=== PATIENT | female | born 1990 ===

== ENCOUNTER → 2017-11-22 | Outpatient (CLI) | payer OTHER ==
[~2017-11-22] MED LIST: ACET-1966 PO; PREN-127 PO; RANI-318 PO
[2017-11-22 10:26] LABS: PLATELET COUNT, AUTOMATED 188 K/uL (150-450)
== END ==
LOC: LAB 09:15
PROVIDERS: ATTEND Obstetrics & Gynecology
DX: Z34.91 Encounter for supervision of normal pregnancy, unspecified, first trimester (principal); R82.79 Other abnormal findings on microbiological examination of urine
CPT/HCPCS: 36415; 81001; 85025; 86592; 86762; 86787; 86850; 86900; 86901; 87088; 87340

== ENCOUNTER → 2018-03-03 | Outpatient (CLI) | payer OTHER ==
[~2018-03-03] MED LIST changes: +DOCU-442 PO; +FLU60VIA41 IM; +TRIA15OI20 TP
--- NOTE | 2018-03-03 13:45 | RADIOLOGY IMAGING REPORT ---
[place] [facility] [place] Deisy Peña : 1990 MR: [id number] V: [id number] EXAM DATE: ORDERING PHYSICIAN: JESSICA GONGORA TECHNOLOGIST: Location: [facility] Patient: Deisy Peña : 1990 Visit/Account:[id number] Date of Sevice: 03/03/2018 [facility] OB ANATOMICAL SURVEY HISTORY: Anatomical survey COMPARISON: None. TECHNIQUE: Transabdominal imaging was performed for assessment of the fetus and maternal pelvic s tructures. Transvaginal imaging was not performed. FINDINGS: Intrauterine gestations: One. presentation: Slightly oblique cephalic presentation. heart rate: 150 bpm. Amniotic fluid volume: Normal; ABBIE 14.33 cm; MVP 3.67 cm. Placenta: Posterior and fundal. Uterus: Gravid, otherwise grossly unremarkable where visualized. Maternal adnexa/ovaries: Grossly unremarkable, ovaries not visualized. Cervix: Grossly long and closed. Gestational Parameters: BPD: 4.96 cm, 73rd percentile HC: 18.13 cm, 47th percentile AC: 15.2 cm, 43rd percentile FL: 3.67 cm, 82nd percentile Average ultrasound age (AUA): 21 weeks/ zero days Estimated age based on LMP: 20 weeks/ three days Estimated weight (EFW): 389 grams +/- 57 grams, 74th percentile Anatomic Survey: Intracranial structures, 4-chamber heart, stomach, kidneys, urinary bladder, spine, 3-vessel cord and cord insertion are unremarkable. Two upper and two lower extremities visualized. The orbits w ere not clearly visualized. The patient has been rescheduled for follow-up ultrasound IMPRESSION: Single viable fetus in oblique cephalic presentation with an estimated gestational age of approximate ly 21 weeks and zero days. Estimated weight is 389 g, 74th percentile The orbits were not clearly visualized and the patient has been rescheduled for follow-up ultra sound Report Dictated By: Lauren Yip MD at 03/03/2018 1:36 PM Report E-Signed By: Lauren Yip MD at 03/03/2018 1:40 PM WSN:[email or web address]
== END ==
LOC: RAD 09:10
PROVIDERS: ATTEND Obstetrics & Gynecology
DX: Z34.02 Encounter for supervision of normal first pregnancy, second trimester (principal); Z3A.21 21 weeks gestation of pregnancy

== ENCOUNTER → 2018-03-07 | Outpatient (CLI) | payer OTHER | LOC: RAD 08:55 | PROVIDERS: ATTEND Obstetrics & Gynecology | DX: Z02.9 Encounter for administrative examinations, unspecified (principal) ==

== ENCOUNTER → 2018-04-28 | Outpatient (CLI) | payer OTHER ==
[~2018-04-28] MED LIST changes: +DIPH0.5D12 IM; +ONDA4TAB9 PO
[2018-04-28 13:00] LABS: PLATELET COUNT, AUTOMATED 166 K/uL (150-450)
== END ==
LOC: LAB 08:11
PROVIDERS: ATTEND Obstetrics & Gynecology
DX: Z34.02 Encounter for supervision of normal first pregnancy, second trimester (principal)
CPT/HCPCS: 36415; 82950; 85025

== ENCOUNTER → 2018-06-24 | Outpatient (CLI) | payer OTHER ==
[~2018-06-24] MED LIST changes: +CALC-515 PO
== END ==
LOC: LAB 09:18
PROVIDERS: ATTEND Advanced Practice Midwife
DX: Z34.93 Encounter for supervision of normal pregnancy, unspecified, third trimester (principal)
CPT/HCPCS: 87081

== ENCOUNTER 2018-07-14 22:24 | Observation (INO) | payer OTHER ==
[2018-07-14] MEDS ORDERED: LR(*) 1000 ML BAG 1,000 ML IV PRN (22:27)
[2018-07-14 23:00] VITALS: BP 115/70
== END 2018-07-15 01:43 | disposition home or self-care (01) ==
LOC: OB 22:24
PROVIDERS: ADMIT Student in an Organized Health Care Education/Training Program; ATTEND Student in an Organized Health Care Education/Training Program
DX: O47.1 False labor at or after 37 completed weeks of gestation (principal); Z3A.39 39 weeks gestation of pregnancy
CPT/HCPCS: 59025; G0378; G0379

== ENCOUNTER 2018-07-17 04:04 | Inpatient (IN) | payer OTHER ==
[~2018-07-17] VITALS: Ht 170.2 cm; Wt 107.5 kg
[2018-07-17] MEDS ORDERED: LR(*) 1000 ML BAG 1,000 ML IV PRN (04:05)
[2018-07-17 05:27] LABS: PLATELET COUNT, AUTOMATED 134 K/uL (150-450)
[2018-07-17 05:39] VITALS: BP 115/77; Ht 170.2 cm; Wt 107.5 kg
[2018-07-17] MEDS ORDERED: OXYTOCIN 30 UNIT/D5LR 500 ML 500 ML IV PRN ×2 (06:33→12:29)
[2018-07-17] MEDS ORDERED: ceFAZolin(*) 2GM/D5W 50ML 50 ML IVPB PRN (06:33)
[2018-07-17] MEDS ORDERED: FAMOTIDINE(*) 20MG/50ML PREMIX 50 ML IVPB PRN (06:33)
[2018-07-17] MEDS ORDERED: CALCIUM CARBONATE 500 MG CHEW PO PRN (06:35)
[2018-07-17] MEDS ORDERED: LIDOCAINE 1% LOCAL 300 MG/30ML INJ PRN (06:35)
[2018-07-17] MEDS ORDERED: FLUSH 10 ML SYR IVP PRN (06:35)
[2018-07-17] MEDS ORDERED: fentaNYL CITR 100 MCG/2 ML AMP IVP PRN (06:35)
[2018-07-17] MEDS ORDERED: ONDANSETRON 4 MG/2 ML VIAL IVP PRN (06:35)
[2018-07-17] MEDS ORDERED: LIDOCAINE/SOD BICARB 8.4% SYR SC PRN (06:35)
[2018-07-17] MEDS ORDERED: METOCLOPRAMIDE 10 MG/2 ML SDV IVP PRN (06:35)
[2018-07-17] MEDS ORDERED: ACETAMINOPHEN 500 MG TAB PO PRN (06:35)
--- NOTE | 2018-07-17 06:50 | History & Physical ---
History of Present Illness EDC per LMP: Jul 18, 2018 Estimated Gestational Age: 39.6 Chief Complaint Labor History of Present Illness 27-year-old at 39w6d presents with contractions. She has been having contractions for over 24hrs but they just increased in severity around midnight. She has had bloody show and mucus discharge for 4 days. She denies LOF. No preeclampsia symptoms. PNC by IMG. c/b GERD and history of depression (not on meds). History Patient's Blood Type: A Positive Rubella Status: Immune Group B Strep Screen: Negative Obstetrical History: Primip Past Medical History: PMH: Hx depression (not active and no meds currently) PSH: Jaw surgery and dental surgery Allergies: Coded Allergies: nickel (Verified Allergy, Intermediate, 02/03/17) adhesive tape (Verified Allergy, Unknown, 02/03/17) Social History: No T/E/D. Family History: FH: breast cancer MGM FH: esophageal cancer MGF FH: skin cancer FATHER FH: uterine cancer MOTHER Groin hernia FATHER Med Rec Home Meds Reported Medications Calcium Carbonate (TUMS) 200 Mg Tab.chew, 200 MG PO, TAB.CHEW 06/27/18 Vits W-Ca,Fe,Fa(<1MG) ( VITAMINS) 1 Each Tablet, 1 EACH PO DAILY, TAB 11/22/17 Acetaminophen (TYLENOL) 325 Mg Tablet, 1-2 TAB PO PRN PRN for PAIN, TAB 02/03/17 Review of Systems Constitutional: No Fever Neurological: No Syncope Eyes: No Vision Change Cardiovascular: No Chest Pain Respiratory: No Shortness of Breath, No Cough Gastrointestinal: No Nausea, No Vomiting, No Diarrhea Genitourinary: No Dysuria Musculoskeletal: No Pain Psychiatric: No Depression, No Anxiety Exam General Exam Vital Signs Vital Signs Date Time Temp Pulse Resp B/P (MAP) Pulse Ox O2 Delivery O2 Flow Rate FiO2 07/17/18 05:39 98.1 81 14 115/77 (90) 94 Room Air General Apperance: Alert/Awake/No Acute Distress Neuro: No Gross deficits Eyes: Normal Extraocular Movement & Vison Cardiovascular: Regular Rate and Rhythm Respiratory: No Respiratory Distress Abdomen: Gravid - Non-Tender : Normal Musculoskeletal: No Weakness/Pain Extremities: No Cyanosis,Clubbing or Edema Integumentary: Skin Intact without Lesions or Rash Psychological: Alert & Oriented X3, Appropriate Mood & Affect Cervical Dialation: 3 Cervical Effacement (%): 80 Cervical Consistency: Soft Cervical Position: Mid Station: -2 Presentation: Vertex Uterine Contractions(Q min): 5 Uterine Contraction Strength: Moderate UC Resting Tone: Soft Fetus Feeling Movement?: Yes FHT Category: I Medical Decision Making Data Points Result Diagram: 07/17/18 0518 Pre-Admit Course Medical Record Review: Yes Assessment and Plan Problems: (1) Spontaneous onset of labor Assessment & Plan: 27-year-old at 39w6d presents with in spontaneous labor. She has changed from 1cm to 3cm. Will assist with coping as labor progresses. GBS negative. Anticipate . (2) 39 weeks gestation of JESSICA GONGORA MD Jul 17, 2018 06:50
[2018-07-17] MEDS ORDERED: BUPIVACAINE 0.25% MPF INJ EPI PRN (08:05)
[2018-07-17] MEDS ORDERED: fentaNYL CITR 100 MCG/2 ML AMP IT PRN (08:05)
[2018-07-17] MEDS ORDERED: BUPIVACAINE 0.5% INJ 30ML VIAL EPI PRN (08:05)
[2018-07-17] MEDS ORDERED: LIDOCAINE/PF 2% 200MG/10ML AMP 200 MG/10 ML AMPUL EPI PRN (08:05)
[2018-07-17] MEDS ORDERED: LIDO/EPI 2% MPF 1:200,000 20ML EPI PRN (08:05)
[2018-07-17] MEDS ORDERED: FENTANYL/ROPIVACAINE 100 ML BAG EPI PRN (08:05)
[2018-07-17] MEDS ORDERED: EPIDURAL KEYS XX PRN (08:10)
--- NOTE | 2018-07-17 09:17 | Labor Progress Note ---
Labor Subjective Progress Notes Feeling Movement?: Yes Vaginal Discharge/Fluid: Bloody Show Labor Pain: Mild, Moderate (with contractions states comfortable between contractions) Neurological: No Headache, No Other Eyes: No Visual Disturbances Labor Objective Vital Signs Vital Signs Date Time Temp Pulse Resp B/P (MAP) Pulse Ox O2 Delivery O2 Flow Rate FiO2 07/17/18 05:39 98.1 81 14 115/77 (90) 94 Room Air Vaginal Discharge/Fluid?: Bloody Show Fetus Heart Tones: 110 Heart Tone Variabilty: Moderate FHT Accelerations: 15X15 FHT Decelerations: None FHT Category: I General Exam General Appearance: Alert/Awake/No Acute Distress, Afebrile Cardiovascular: Normal Rhythm & Peripheral Pulses Respiratory: Clear to Auscultation Abdomen: Gravid - Non-Tender Extremities: Warm, Reflexes (2+ patellar), Edema (n) Psychological: Alert & Oriented X3 Other Result Diagram: 07/17/18 0518 Assessment and Plan Problems: (1) Spontaneous onset of labor Assessment & Plan: 1. Labor State: early spontaneous labor 2 well being: Cat 1 FHT 3. Maternal well being: NCB breathing well with contractions, encourage ambulation, position change and tub 4. PNL: A+, GBS negative, Hep B neg, Rubella Immune, VDRL NR 5. Pain management: NCB for now, may desire epidural when in active labor 6. Feeding: desires to breastfeed. 7: PPBCM: uncertain at this time 8. c/b: hx of depression, no problems in 9. Anticipate : will reassess cervix as indicated, Dr. Borges plans to deliver. (2) 39 weeks gestation of YASHIRARolfESSIEWADEBRITTNEE WINN Jul 17, 2018 08:46
--- NOTE | 2018-07-17 10:13 | Labor Progress Note ---
Labor Subjective Progress Notes Subjective Pt reports contractions have slowed down. Labor Objective Vital Signs Vital Signs Date Time Temp Pulse Resp B/P (MAP) Pulse Ox O2 Delivery O2 Flow Rate FiO2 07/17/18 05:39 98.1 81 14 115/77 (90) 94 Room Air Cervical Dialation: 3 Cervical Effacement (%): 80 Cervical Consistency: Soft Cervical Position: Mid Station: -2 Presentation: Vertex Uterine Contractions(Q min): 8 Uterine Contraction Strength: Mild UC Resting Tone: Soft Fetus FHT Category: I General Exam General Appearance: Alert/Awake/No Acute Distress Abdomen: Gravid - Non-Tender : Normal Musculoskeletal: No Weakness/Pain Extremities: No Cyanosis,Clubbing or Edema Integumentary: Skin Intact without Lesions or Rash Psychological: Alert & Oriented X3, Appropriate Mood & Affect Other Result Diagram: 07/17/18 0518 Assessment and Plan Problems: (1) Spontaneous onset of labor Assessment & Plan: AROM with clear fluid. Will augment with pitocin if this is not sufficient. Anticipate . (2) 39 weeks gestation of JESSICA GONGORA MD Jul 17, 2018 10:13
--- NOTE | 2018-07-17 13:28 | Labor Progress Note ---
Labor Subjective Progress Notes Subjective Pt is feeling tired and hungry, would like to be examined and may consider pitocin if not changing. Feeling Movement?: Yes Vaginal Discharge/Fluid: Bloody Show Labor Pain: Moderate (in the lower pelvis and thighs) Eyes: No Visual Disturbances Labor Objective Vital Signs Vital Signs Date Time Temp Pulse Resp B/P (MAP) Pulse Ox O2 Delivery O2 Flow Rate FiO2 07/17/18 05:39 98.1 81 14 115/77 (90) 94 Room Air Vaginal Discharge/Fluid?: Bloody Show (leaking small amount of clear fluid) Cervical Dialation: 3 Cervical Effacement (%): 80 Cervical Consistency: Firm Cervical Position: Posterior Station: -1 Presentation: Vertex Uterine Contraction Strength: Moderate UC Resting Tone: Soft Fetus Heart Tones: 110 Heart Tone Variabilty: Moderate FHT Accelerations: 15X15 FHT Decelerations: None FHT Category: I General Exam General Appearance: Alert/Awake/No Acute Distress Psychological: Alert & Oriented X3 Other Result Diagram: 07/17/18 0518 Assessment and Plan Problems: (1) Spontaneous onset of labor Assessment & Plan: Assessment & Plan: 1. 27 y/o in early spontaneous labor 2 well being: Cat 1 FHT, continuous monitoring 3. Maternal well being: Continues doing well with breathing and relaxation, encourage position change AROM at 1000, afebrile No cevical change since 0630 4. PNL: A+, GBS negative, Hep B neg, Rubella Immune, VDRL NR 5. Pain management: NCB for now, may desire epidural when in active labor 6. Feeding: desires to breastfeed. 7: PPBCM: uncertain at this time 8. c/b: hx of depression, no problems in 9. Anticipate : will start pitocin per protocol and increase until more regular contractions Reassess when contractions are more regular Anticipate . (2) 39 weeks gestation of BRITTNEE JEAN BAPTISTE CNM Jul 17, 2018 13:28
[2018-07-17] MEDS ORDERED: fentaNYL CITR 100 MCG/2 ML AMP ONE (15:50)
[2018-07-17] MEDS ORDERED: ONDANSETRON 4 MG/2 ML VIAL ONE (15:50)
[2018-07-17] MEDS ORDERED: FENTANYL/ROPIVACAINE 100ML BAG 100 ML ONE (15:51)
[2018-07-17] MEDS ORDERED: BUPIVACAINE 0.5% INJ 30ML VIAL ONE (15:51)
[2018-07-17] MEDS: LR(*) 1000 ML BAG 1,000 ML IV SCH ×2 (16:33→17:21)
--- NOTE | 2018-07-17 17:10 | Labor Progress Note ---
Labor Subjective Progress Notes Subjective Pt is now comfortable with an epidural. Labor Objective Vital Signs Vital Signs Date Time Temp Pulse Resp B/P (MAP) Pulse Ox O2 Delivery O2 Flow Rate FiO2 07/17/18 05:39 98.1 81 14 115/77 (90) 94 Room Air Vaginal Discharge/Fluid?: Clear Fluid Cervical Dialation: 4 Cervical Effacement (%): 90 Cervical Consistency: Soft Cervical Position: Mid Station: 0 Presentation: Vertex Uterine Contractions(Q min): 3 Uterine Contraction Strength: Moderate UC Resting Tone: Soft Fetus FHT Category: I General Exam General Appearance: Alert/Awake/No Acute Distress Extremities: No Cyanosis,Clubbing or Edema Integumentary: Skin Intact without Lesions or Rash Psychological: Alert & Oriented X3, Appropriate Mood & Affect Other Result Diagram: 07/17/18 0518 Assessment and Plan Problems: (1) Spontaneous onset of labor Assessment & Plan: Pt just received epidural. Pitocin now increasing per protocol. Continue current management. (2) 39 weeks gestation of JESSICA GONGORA MD Jul 17, 2018 17:10
--- NOTE | 2018-07-17 18:17 | Anesthesia OB Pre-Anes Eval ---
History of Present Illness Anesthesia Start Date: Jul 17, 2018 Anesthesia Start Time: 15:57 OB Anesthesia Diagnosis: spontaneous labor EDC: Jul 18, 2018 : 1 Para: 0 Vital Signs: Vital Signs 07/17/18 05:39 Temp 98.1 Pulse 81 Resp 14 B/P (MAP) 115/77 (90) Pulse Ox 94 O2 Delivery Room Air Pain Ratin Heart Tones: 136 Result Diagram: 07/17/18 0518 Height (Inches): 67.00 Weight (Pounds): 237 BMI (kg/m2): 37.10 Past Medical History Medical History: no pertinent history Surgical History: noncontributory Previous Anesthesia: general Hx Anesthesia Reactions: No Hx Family Anesthesia Reaction: No Current Medications: pitocin Past Complications: obesity Home Meds Reported Medications Calcium Carbonate (TUMS) 200 Mg Tab.chew, 200 MG PO, TAB.CHEW 06/27/18 Vits W-Ca,Fe,Fa(<1MG) ( VITAMINS) 1 Each Tablet, 1 EACH PO GEMMA LY, TAB 11/22/17 Acetaminophen (TYLENOL) 325 Mg Tablet, 1-2 TAB PO PRN PRN for PAIN, TAB 02/03/17 Allergies: Coded Allergies: nickel (Verified Allergy, Intermediate, 02/03/17) adhesive tape (Verified Allergy, Unknown, 02/03/17) Anesthesia OB ROS Neurological: No migraines/headaches, No seizures, No neuropathy, No other ENT: Denies Tooth caps, Denies Loose teeth, Denies Chipped teeth, Denies Dentures, Denies Bridges, Denies Retainers, Denies Veneers, Denies Implants, Denies Tongue ring, Denies Other Pulmonary: No asthma, No smoker (pks/day/yrs), No other Airway Class: ll Cardiovascular ROS: No edema, No arrhythmia, No other GI ROS: clear liquids Last Solids Date: Jul 17, 2018 Last Solids Time: 12:00 ROS: No Herpes, No STD(s), No Liver Disease, No Renal Disease, No Other Endocrine ROS: No diabetes, No gestational diabetes, No thyroid disorder, No other Musculoskeletal ROS: low back pain ASA Classification: 2 Assessment and Plan Anesthesia Plan: PORTIA WESTON CRNA Jul 17, 2018 18:17
--- NOTE | 2018-07-17 18:22 | Procedure Note ---
Anesthetic Placement Note Anesthesia Plan: CSE Permit for Anesthesia Signed: Yes Anesthesia Technique: Patient Sitting Anesthesia Prep: Chlorhexidine Interspace: L 3-4 Local Anesthetic: 1% Lidocaine Amount Local - cc's: 6 Anesthesia Needle: 17g Touhy/Schliff Anesthesia Attempts: 4 Loss of Resistance: Normal Saline Depth of JESSICA (cm): 4.5 Epidural Needle Placement: No CSF, No Blood, No Parasthesia Intrathecal Needle: 27 Gauge Pencan Cerebral Spinal Fluid: Yes, Clear Catheter Insertion (cm): 10 (10 cm @ skin) Catheter Type: Brar - Spring Wound Epidural Dressing: Tegaderm Anesthesia Tray: Lot Number ([id number]), Expiration Date (04/04), Reference Number ([id number]) Comment: very difficult, ?? scoliosis. Used [employer] ultrasound and found interspace to be way off midline to the left. Successful at this location. Anesthesia Medications: Intrathecal Dose: mcg Fentanyl (10), mg Marcaine MPF (2.5), Time (1640) Epidural Test Dose: 1.5 Lido/Epi (1:200,000), Dose - mL (3), Time (1643), Negative Epidural Infusion: 0.2% Ropivicaine, With Fentanyl 2mcg/ml, Start Time: (1703) Epidural Pump Setting: Bolus Dose - mL (8), Lockout - Minutes (20), Maintenance Rate - mL/hr (6) Complications: None PORTIA HERNANDEZ CRNA Jul 17, 2018 18:22
--- NOTE | 2018-07-17 21:18 | Anesthesia Progress Note ---
Progress/Maintenance Anesthesia Note Date: Jul 17, 2018 Anesthesia Note Time: 21:15 Pain Intensity: 5 Pump: On Pump Rate (ML/HR): 6 Sensory Level: R leg pain Motor Level: Bending Knees-Bilateral Dilatation: 6 Position: Left, Tilt Drug Bolus: 0.25% Marcaine (5cc plus 90 mcg fentanyl) PORTIA HERNANDEZ CRNA Jul 17, 2018 21:18
--- NOTE | 2018-07-17 22:52 | Labor Progress Note ---
Labor Subjective Progress Notes Subjective Pt is comfortable with epidural. Labor Objective Vital Signs Vital Signs Date Time Temp Pulse Resp B/P (MAP) Pulse Ox O2 Delivery O2 Flow Rate FiO2 07/17/18 05:39 98.1 81 14 115/77 (90) 94 Room Air Vaginal Discharge/Fluid?: Clear Fluid Cervical Dialation: 10 Station: +2 Presentation: Vertex Uterine Contractions(Q min): 3 Uterine Contraction Strength: Strong UC Resting Tone: Soft Fetus FHT Category: I General Exam General Appearance: Alert/Awake/No Acute Distress Respiratory: No Respiratory Distress Extremities: No Cyanosis,Clubbing or Edema Integumentary: Skin Intact without Lesions or Rash Psychological: Alert & Oriented X3, Appropriate Mood & Affect Other Result Diagram: 07/17/18 0518 Assessment and Plan Problems: (1) Spontaneous onset of labor Assessment & Plan: Pt is now complete and pushing effectively. Anticipate . (2) 39 weeks gestation of JESSICA GONGORA MD Jul 17, 2018 22:52
--- NOTE | 2018-07-17 23:31 | OB Delivery Note ---
Delivery Note Vaginal Delivery Type: Spont. Vaginal Delivery Delivery Date: Jul 17, 2018 Delivery Time: 23:06 Estimated Gestational Age(wks): 39.6 Length of Labor Stage II (hrs): 0.9 Labor Stage III (minutes): 4 Delivery Anesthesia: Epidural Sex: Female [place] Apgars: 1 Minute (7), 5 Minute (8) Repair Needed: 2nd Degree Estimated Blood Loss: 300 Aluminum Boats Assembler in Attendence: JESSICA Mohr MD Jul 17, 2018 23:31
[2018-07-17] MEDS ORDERED: INFLUENZA VIRUS VAC 0.5ML SYR IM ONLY ONE (23:35)
[2018-07-17] MEDS ORDERED: MEASLES,MUMP,RUBELLA VAC 0.5ML SUBQ ONE (23:35)
[2018-07-17] MEDS ORDERED: MAGNESIUM HYDROXIDE* 30ML UDCP PO PRN (23:35)
[2018-07-17] MEDS ORDERED: HYDROCORTISONE 2.5% CR 30GM TB PR PRN (23:35)
[2018-07-17] MEDS ORDERED: APAP/HYDROCODONE 325/5 TAB PO PRN (23:35)
[2018-07-17] MEDS ORDERED: LANOLIN OINT 7 GM TUBE TP PRN (23:35)
[2018-07-17] MEDS ORDERED: BENZOCAINE 20% 60 ML BTL TP PRN (23:35)
[2018-07-17] MEDS ORDERED: DIPHTH/TETANUS/ACEL. PERTUSSIS IM ONLY ONE (23:35)
[2018-07-17] MEDS ORDERED: ACETAMINOPHEN 325 MG TAB PO PRN (23:35)
[2018-07-17] MEDS ORDERED: GLYCERIN/WITCH HAZEL LEAF 1 PK TP PRN (23:35)
[2018-07-17] MEDS ORDERED: IBUP800T37 PO (23:37)
[2018-07-17] MEDS ORDERED: LOR5/325 PO (23:37)
--- NOTE | 2018-07-18 00:18 | Anesthesia Progress Note ---
Assessment and Plan Anesthesia Plan: CSE Anesthesia Stop Day: Jul 17, 2018 Anesthesia Stop Time: 23:20 Epidural Catheter Removal: Removed Catheter Intact, Yes, Removed by: (RN) PORTIA HERNANDEZ CRNA Jul 18, 2018 00:18
[2018-07-18] MEDS: IBUPROFEN 800 MG TAB PO SCH ×3 (02:14→17:00)
[2018-07-18 02:15] VITALS: BP 117/56
[2018-07-18] MEDS: LR(*) 1000 ML BAG 1,000 ML IV SCH (02:33)
--- NOTE | 2018-07-18 07:39 | DELIVERY NOTE ---
DELIVERY DATE: July 17, 2018 SURGEON: Kiara Borges MD ANESTHESIA: Epidural by Lenore Chavez CRNA PREOPERATIVE DIAGNOSIS: Intrauterine at 39 weeks and 6 days presenting in spontaneous labor. POSTOPERATIVE DIAGNOSIS: 1. Intrauterine at 39 weeks and 6 days presenting in spontaneous labor. 2. Delivery of viable female at 2306 hours weighing 7#0oz with Apgars of 7 at one minute and 8 at five minutes. PROCEDURES: 1. Spontaneous vaginal delivery. 2. Repair of 2nd degree midline laceration. ESTIMATED BLOOD LOSS 300 cc. INDICATIONS This patient is a 27-year-old 1, para 0 who presented at 39 weeks and 6 days with regular uterine contractions. At the time of admission, she was 1 cm dilated, 30% effaced and -3 station. She then progressed to 3 cm, 80 and -2 on her own, after which time her contractions seemed to decrease in frequency and severity. She, therefore, underwent an amniotomy at 1009 hours with return of clear fluid. After monitoring for hours, she did not progress further and, therefore, Pitocin was started to augment her labor at 1400 hours. Allen then received an epidural for anesthesia and was allowed to progress to complete, 2210 hours. At that time, she was prepared for pushing. DESCRIPTION OF PROCEDURE The patient was properly identified and placed in the dorsal lithotomy position. She was prepped and draped in the usual fashion for a vaginal delivery. She was asked to push and in less than one hour was able to bring the infant's vertex to the perineum. She was able to deliver the infant's vertex in the LINDA position over an intact perineum. A nuchal cord was checked but not noted. The anterior shoulder delivered easily followed by the posterior shoulder. The posterior arm, which was the infant's left arm, was noted to be in a compound presentation. The remainder of the infant was easily delivered. The infant had spontaneous cry and spontaneous movement of all four extremities. The ' oropharynx and nasopharynx were bulb suctioned. The infant was then passed to the mother's abdomen in good condition. After one minute had passed, the cord was clamped x2 and cut by the father of the baby. Cord blood was then obtained and passed off the table. Examination of the cervix, vaginal vault and perineum revealed a second degree midline laceration. Pitocin was started through the IV fluid to help firm the uterus. The placenta subsequently delivered spontaneously intact at 2310 hours. Re-examination of the cervix and vaginal vault confirmed the above said findings. Therefore, using a 2-0 Vicryl, the midline lacerations were repaired without difficulty. Hemostasis was assured. The patient tolerated this procedure well and recovered in labor and delivery with the . [facility]
[2018-07-18 07:45] VITALS: BP 105/57
--- NOTE | 2018-07-18 09:42 | OB/GYN Progress Note ---
OB Subjective Progress Notes Subjective Doing well. Pain controlled with oral medications. Tolerating regular diet. Ambulating. Voiding. Normal lochia. No preeclampsia symptoms. OB Objective Physical Exam Vital Signs Date Time Temp Pulse Resp B/P (MAP) Pulse Ox O2 Delivery O2 Flow Rate FiO2 07/18/18 02:15 97.8 84 16 117/56 (76) 92 Room Air Intake and Output 07/18/18 07:00 Output Total 450 ml Balance -450 ml Output Urine Total 450 ml # Voids 1 General Appearance: Alert/Awake/No Acute Distress Neurological: No Gross deficits Eyes: Normal Extraocular Movement & Vison Cardiovascular: Normal Rhythm & Peripheral Pulses Respiratory: No Respiratory Distress, Clear to Auscultation Abdomen: Soft, Non-Tender, Non-Distended, Fundus Firm Musculoskeletal: No Weakness/Pain Extremities: No Cyanosis,Clubbing or Edema Integumentary: Skin Intact without Lesions or Rash Psychological: Alert & Oriented X3, Appropriate Mood & Affect Result Diagram: 07/17/18 0518 Assessment and Plan Problems: (1) examination following vaginal delivery Assessment & Plan: PPD#1 s/p . Doing well. Working on breast feeding and rest today. Plan for discharge tomorrow. JESSICA GONGORA MD Jul 18, 2018 09:42
[2018-07-18] MEDS: DOCUSATE CALCIUM 240 MG CAP PO SCH ×2 (10:28→20:40)
--- NOTE | 2018-07-18 11:05 | Anesthesia Post Eval Note ---
Anesthesia Post Eval Note Vital Signs 07/18/18 02:15 Temp 97.8 Pulse 84 Resp 16 B/P (MAP) 117/56 (76) Pulse Ox 92 O2 Delivery Room Air Pt able to participate in Eval: Yes Cardiovascular Status: Satisfactory Respiratory Status: Satisfactory Pain Managment: Satisfactory PO Nausea/Vomiting: Satisfactory Temperature Management: Satisfactory Mental Status: Satisfactory, Alert, Oriented X3 Post-Op Hydration Status: Satisfactory, Tolerating PO Well, Voiding w/o Difficulty Anesthesia Type: CSE Anesthesia Tolerance: Has a sore back after epidural attemps. I gave her an ice bag. PORTIA HERNANDEZ CRNA Jul 18, 2018 11:05
[2018-07-18 12:10] VITALS: BP 108/55
[2018-07-18 20:35] VITALS: BP 107/61
[2018-07-18 23:30] VITALS: BP 117/56
[2018-07-19] MEDS: IBUPROFEN 800 MG TAB PO SCH (03:00)
[2018-07-19 03:45] VITALS: BP 114/60
--- NOTE | 2018-07-19 08:47 | OB/GYN Progress Note ---
OB Subjective Progress Notes Subjective Doing well. Pain controlled with oral medications. Tolerating regular diet. Ambulating. Voiding. Normal lochia. No preeclampsia symptoms. is going better. OB Objective Physical Exam Vital Signs Date Time Temp Pulse Resp B/P (MAP) Pulse Ox O2 Delivery O2 Flow Rate FiO2 07/19/18 03:45 97.5 79 15 114/60 (78) 93 Room Air Intake and Output 07/19/18 07:00 Intake Total 120 ml Balance 120 ml Intake Oral 120 ml # Voids 2 General Appearance: Alert/Awake/No Acute Distress Neurological: No Gross deficits Eyes: Normal Extraocular Movement & Vison Cardiovascular: Normal Rhythm & Peripheral Pulses Respiratory: No Respiratory Distress, Clear to Auscultation Abdomen: Soft, Non-Tender, Non-Distended, Fundus Firm Musculoskeletal: No Weakness/Pain Extremities: No Cyanosis,Clubbing or Edema Integumentary: Skin Intact without Lesions or Rash Psychological: Alert & Oriented X3, Appropriate Mood & Affect Result Diagram: 07/17/18 0518 Assessment and Plan Problems: (1) examination following vaginal delivery Assessment & Plan: PPD#2 s/p . Meeting milestones. Desires discharge to home today. Discussed routine expectations. Questions answered. Follow up in clinic in 2wks for check. JESSICA GONGORA MD Jul 19, 2018 08:47
--- NOTE | 2018-07-19 08:48 | OB/GYN Discharge Summary ---
Discharge Summary Reason for Hosp/Final Diag: (1) examination following vaginal delivery Hospital Course & Plan: PPD#2 s/p . Meeting milestones. Desires discharge to home today. Discussed routine expectations. Questions answered. Follow up in clinic in 2wks for check. Lates Vital Signs Vital Signs Date Time Temp Pulse Resp B/P (MAP) Pulse Ox O2 Delivery O2 Flow Rate FiO2 07/19/18 03:45 97.5 79 15 114/60 (78) 93 Room Air Weight (Pounds): 237 Result Diagram: 07/17/18 0518 Condition: Improved Discharge: Home, Self [facility] Meds Active Scripts Hydrocodone Bit/Acetaminophen (HYDROCODON-ACETAMINOPHEN 5-325) 1 Each Tablet, 1 EACH PO Q4-6H PRN for pain, #20 TAB 0 Refills Prov:JESSICA GONGORA MD 07/17/18 Reported Medications Calcium Carbonate (TUMS) 200 Mg Tab.chew, 200 MG PO, TAB.CHEW 06/27/18 Vits W-Ca,Fe,Fa(<1MG) ( VITAMINS) 1 Each Tablet, 1 EACH PO DAILY, TAB 11/22/17 Acetaminophen (TYLENOL) 325 Mg Tablet, 1-2 TAB PO PRN PRN for PAIN, TAB 02/03/17 Follow up Referrals: [facility]USE [facility]SEM[facility] - [facility] Two Weeks @ [facility] with JESSICA GONGORA MD Discharge Diet: As Tolerates Discharge Activity: Pelvic Rest JESSICA GONGORA MD Jul 19, 2018 08:48
[2018-07-19 08:59] VITALS: BP 116/56
[2018-07-19] MEDS: DOCUSATE CALCIUM 240 MG CAP PO SCH (09:16)
[2018-07-19] MEDS ORDERED: IBUPROFEN 800 MG TAB PO SCH (11:00)
== END 2018-07-19 12:45 | disposition home or self-care (01) | DRG 807 ==
LOC: OB 04:04
PROVIDERS: ADMIT Obstetrics & Gynecology; ATTEND Obstetrics & Gynecology
PROC: 10E0XZZ Delivery of Products of Conception, External Approach (ICD-10-PCS; principal; 2018-07-17)
PROC: 0KQM0ZZ Repair Perineum Muscle, Open Approach (ICD-10-PCS; 2018-07-17)
PROC: 10907ZC Drainage of Amniotic Fluid, Therapeutic from Products of Conception, Via Natural or Artificial Opening (ICD-10-PCS; 2018-07-17)
DX: O99.62 Diseases of the digestive system complicating childbirth (principal); Z37.0 Single live birth; O70.1 Second degree perineal laceration during delivery; K21.9 Gastro-esophageal reflux disease without esophagitis; Z3A.39 39 weeks gestation of pregnancy
CPT/HCPCS: 36415; 85025; 86703; 86850; 86900; 86901; J2590; J7120